=== PATIENT | female | born 1945 | race Caucasian/White ===

== ENCOUNTER → 2020-03-23 | Outpatient (CLI) | payer MEDICARE, BC ==
[~2020-03-23] MED LIST: HYDROCHLOROTH12.5 M1 PO; LEVOTHYROXIN0.088 MG PO; LIPITOR 20 MG T20 M1 PO
== END ==
LOC: M.RAD 11:51
PROVIDERS: ATTEND Internal Medicine
DX: S52.125A Nondisplaced fracture of head of left radius, initial encounter for closed fracture (principal); M85.831 Other specified disorders of bone density and structure, right forearm; X58.XXXA Exposure to other specified factors, initial encounter; Y93.89 Activity, other specified; Y92.89 Other specified places as the place of occurrence of the external cause; Y99.8 Other external cause status

== ENCOUNTER → 2020-07-07 | Outpatient (CLI) | payer MEDICARE, BC | LOC: M.RAD 10:07 | PROVIDERS: ATTEND Internal Medicine | DX: M85.88 Other specified disorders of bone density and structure, other site (principal); S42.302D Unspecified fracture of shaft of humerus, left arm, subsequent encounter for fracture with routine healing ==